=== PATIENT | female | born 1955 | race Caucasian/White ===

== ENCOUNTER → 2019-06-01 | Outpatient (CLI) | payer MEDICARE, OTHER | END | disposition home or self-care (01) | LOC: CFH 08:03 | PROVIDERS: ATTEND Family Medicine | DX: T85.898A Other specified complication of other internal prosthetic devices, implants and grafts, initial encounter (principal); M41.84 Other forms of scoliosis, thoracic region; Z98.82 Breast implant status; Y83.8 Other surgical procedures as the cause of abnormal reaction of the patient, or of later complication, without mention of misadventure at the time of the procedure; Y92.89 Other specified places as the place of occurrence of the external cause | CPT/HCPCS: 71046; 77066 ==